=== PATIENT | female | born 1950 | race African-American/Black ===

== ENCOUNTER 2016-03-10 08:39 | Emergency (ER) | payer OTHER, MEDICARE ==
[~2016-03-10] VITALS: Ht 154.9 cm; Wt 81.6 kg
[2016-03-10 08:54] VITALS: BP 201/95
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
[2016-03-10] MEDS ORDERED: METH-37 PO (10:17)
[2016-03-10] MEDS ORDERED: TRAM-29 PO (10:17)
== END 2016-03-10 10:29 | disposition home or self-care (01) ==
LOC: ER 08:39
DX: S16.1XXA Strain of muscle, fascia and tendon at neck level, initial encounter (principal); M54.5 Low back pain; V49.59XA Passenger injured in collision with other motor vehicles in traffic accident, initial encounter; Y93.89 Activity, other specified; Y92.89 Other specified places as the place of occurrence of the external cause; Y99.8 Other external cause status
CPT/HCPCS: 72040; 72100; 99284